=== PATIENT | male | born 1985 | race Caucasian/White ===

== ENCOUNTER 2017-12-27 03:47 | Emergency (ER) | payer SELFPAY ==
[2017-12-27] MEDS ORDERED: Adacel (T-DAP) 0.5 ML VIAL ONE (04:37)
== END 2017-12-27 05:00 | disposition home or self-care (01) ==
LOC: ERS 03:47
DX: S61.214A Laceration without foreign body of right ring finger without damage to nail, initial encounter (principal); L08.89 Other specified local infections of the skin and subcutaneous tissue; F41.9 Anxiety disorder, unspecified; F31.9 Bipolar disorder, unspecified; F20.9 Schizophrenia, unspecified; F17.210 Nicotine dependence, cigarettes, uncomplicated; Z23 Encounter for immunization; W26.8XXA Contact with other sharp object(s), not elsewhere classified, initial encounter; Y99.0 Civilian activity done for income or pay
CPT/HCPCS: 90471; 90715

== ENCOUNTER 2018-01-04 04:37 | Emergency (ER) | payer SELFPAY ==
--- NOTE | 2018-01-04 09:30 | RAD ---
RIGHT HAND 3 VIEWS: Date: 01/04/18 HISTORY: Injury to right hand with pain. FINDINGS: Carpals appear intact and unremarkable. The metacarpals and phalanges are intact. MCP and IP joints u nremarkable. IMPRESSION: No acute findings. POS: [facility]
== END 2018-01-04 05:27 | disposition home or self-care (01) ==
LOC: ERS 04:37
DX: S60.221A Contusion of right hand, initial encounter (principal); J06.9 Acute upper respiratory infection, unspecified; F41.9 Anxiety disorder, unspecified; F31.9 Bipolar disorder, unspecified; F17.210 Nicotine dependence, cigarettes, uncomplicated; F20.9 Schizophrenia, unspecified; W01.0XXA Fall on same level from slipping, tripping and stumbling without subsequent striking against object, initial encounter
CPT/HCPCS: 99406